=== PATIENT | female | born 2000 | race Caucasian/White ===

== ENCOUNTER 2022-04-01 11:36 | Emergency (ER) | payer OTHER, MEDICAID ==
[~2022-04-01] VITALS: Ht 172.7 cm; Wt 56.4 kg
[2022-04-01 11:54] VITALS: BP 122/68; TEMP 98
[2022-04-01] MEDS ORDERED: NEXPLANON68 MG ID (12:27)
[2022-04-01] MEDS ORDERED: PROZAC 10MG10 MG PO (12:27)
[2022-04-01] MEDS ORDERED: ADDERALL15 MG PO (12:27)
[2022-04-01] MEDS ORDERED: FLONASEALLERGY NS (12:50)
[2022-04-01 13:01] VITALS: PULSE 69
== END 2022-04-01 13:03 | disposition home or self-care (01) ==
LOC: COL.ER 11:36
DX: J06.9 Acute upper respiratory infection, unspecified (principal); Z20.822 Contact with and (suspected) exposure to COVID-19; Z28.310 Unvaccinated for COVID-19

== ENCOUNTER 2022-07-30 16:44 | Emergency (ER) | payer OTHER, MEDICAID ==
[~2022-07-30] VITALS: Ht 172.7 cm; Wt 54.5 kg
[~2022-07-30 16:44] MED LIST: ADDERALL15 MG PO; FLONASEALLERGY NS; NEXPLANON68 MG ID; PROZAC 10MG10 MG PO
[2022-07-30 16:51] VITALS: BP 125/85; TEMP 98
[2022-07-30 18:47] VITALS: PULSE 87
== END 2022-07-30 18:47 | disposition home or self-care (01) ==
LOC: COL.ER 16:44
DX: S40.262A Insect bite (nonvenomous) of left shoulder, initial encounter (principal); L08.9 Local infection of the skin and subcutaneous tissue, unspecified; Z28.310 Unvaccinated for COVID-19; W57.XXXA Bitten or stung by nonvenomous insect and other nonvenomous arthropods, initial encounter